=== PATIENT | male | born 1960 | race Caucasian/White ===

== ENCOUNTER 2019-03-03 17:35 | Emergency (ER) | payer OTHER ==
[~2019-03-03] VITALS: Ht 177.8 cm; Wt 149.7 kg
[~2019-03-03 17:35] MED LIST: MEDROLDOSEPACK PO; ROBAXIN 750 MG750 M1 PO; TRULICITY0.75 MG/0.
[2019-03-03 17:45] VITALS: BP 139/80
[2019-03-03] MEDS ORDERED: COLAZAL750 M1 PO (17:51)
[2019-03-03] MEDS ORDERED: LOSARTAN-HCTZ1 EAC2 PO (17:51)
[2019-03-03] MEDS ORDERED: SINGULAIR 10 MG10 M1 PO (17:51)
[2019-03-03] MEDS ORDERED: NORVASC5 MG PO (17:51)
== END 2019-03-03 18:09 | disposition home or self-care (01) ==
LOC: M.ERS 17:35
DX: L03.115 Cellulitis of right lower limb (principal); I10 Essential (primary) hypertension; E11.9 Type 2 diabetes mellitus without complications

== ENCOUNTER 2020-03-13 10:19 | Inpatient (IN) | payer OTHER ==
[~2020-03-13] VITALS: Ht 177.8 cm; Wt 118.4 kg
[~2020-03-13 10:19] MED LIST changes: +COLAZAL750 M1 PO; +LOSARTAN-HCTZ1 EAC2 PO; +NORVASC5 MG PO; +SINGULAIR 10 MG10 M1 PO
[2020-03-13 10:28] VITALS: BP 162/79
[2020-03-13] MEDS ORDERED: OMEPRAZOLE40 MG PO (10:44)
[2020-03-13 10:51] LABS: HEMATOCRIT 43.5 % (42.0-52.0); HEMOGLOBIN 15.1 gm/dL (14.0-18.0); MCHC 34.7 g/dL (28.0-37.0); MCV 83.6 fL (80.0-100.0); NUCLEATED RBCS 0 /100WBC; PLATELET COUNT* 167 thou/uL (150-400); RDW-CV 14.4 % (10.5-14.5); WBC 15.7 thou/uL (4.0-11.0)
[2020-03-13 11:04] LABS: INR 1.1
[2020-03-13 11:06] LABS: CALCIUM 8.5 mg/dL (8.5-10.1); CREATININE 1.1 mg/dL (0.6-1.3); POTASSIUM 3.8 mmol/L (3.5-5.1)
[2020-03-13 11:11] LABS: ALBUMIN 2.3 g/dL (3.4-5.0); TOTAL BILIRUBIN 0.9 mg/dL (<0.1-1.0); TOTAL PROTEIN 7.8 g/dL (6.4-8.2)
[2020-03-13 11:33] LABS: ABSOLUTE LYMPHOCYTES 1.7 thou/uL (0.8-5.3); ABSOLUTE MONOCYTES 1.1 thou/uL (0.0-1.2); ABSOLUTE NEUTROPHILS 12.9 thou/uL (1.6-8.1)
[2020-03-13 11:37] LABS: TOXIC GRANULATION Occasional
[2020-03-13 11:38] LABS: PLATELET ESTIMATE ADEQUATE
[2020-03-13 12:20] LABS: URINE BLOOD 2+ (Negative); URINE CLARITY CLEAR; URINE COLOR DARK YELLOW; URINE GLUCOSE-RANDOM NEGATIVE (Negative); URINE KETONES 1+ (Negative); URINE LEUKOCYTES-REFLEX NEGATIVE (Negative); URINE NITRITE-REFLEX NEGATIVE (Negative); URINE PROTEIN 3+ (Negative); URINE SPECIFIC GRAVITY 1.025 (1.005-1.030)
[2020-03-13 12:21] LABS: URINE BILIRUBIN 1+ (Negative)
[2020-03-13 12:22] LABS: ICTOTEST (BILI CONFIRMATORY) Negative (Negative)
[2020-03-13 12:25] LABS: SQUAMOUS 4-10 Moderate /LPF (0-3); URINE WBC-REFLEX 0-5 Rare /HPF (0-5)
[2020-03-13 12:26] LABS: BACTERIA-REFLEX >30 Many /HPF (None Seen); COARSE GRANULAR CASTS 0-3 Few /LPF (None Seen); FINE GRANULAR CASTS 0-3 Few /LPF (None Seen); HYALINE CASTS 4-10 Moderate /LPF (None Seen); MUCUS >6 Heavy strn/LPF (None Seen); URINE RBC 3-10 Few /HPF (0-2)
[2020-03-13 12:27] LABS: CRYSTALS None Seen /LPF (None Seen)
--- NOTE | 2020-03-13 12:30 | NUR ---
A SPECIAL PRECAUTIONS DIET TRAY WAS ORDERED FOR THE PATIENT AT THIS TIME.
--- NOTE | 2020-03-13 14:16 | NUR ---
PT GIVES HIS SPOUSE PERMISSION TO RECEIVE PATIENT INFORMATION AND PLAN OF CARE. PT'S SPOUSE REPORTS SHE IS BRINGING HIS PHONE SERVICE CORRESPONDENT TO HOSPITAL FOR HIM.
--- NOTE | 2020-03-13 16:39 | NUR ---
PT'S SPOUSE DROPPED OFF HIS CPAP MACHINE AND A BAG OF CLOTHES; ALL GIVEN TO THE PATIENT.
--- NOTE | 2020-03-13 17:11 | NUR ---
PT PROVIDED DINNER TRAY AND HELP UP TO USE BATHROOM R/T UNSTEADINESS IN AMBULATION
[2020-03-13 20:15] VITALS: BP 153/79
[2020-03-13 20:20] VITALS: BP 136/73
[2020-03-13 23:48] VITALS: BP 151/76
[2020-03-14 04:00] VITALS: BP 130/61
--- NOTE | 2020-03-14 04:40 | NUR ---
RECEIVED PT FROM ED AT APPROX 2020. PT IS AWAKE AND ORIENTED X4, FORGETFUL AT TIMES. ADMISSION ASSESSMENT DONE AND CHARTED. PT IS TRACING SR/ST ON THE VET ASSISTANT. Cezv=866.6, COOLING MEASURES DONE. NO DESATURATIONS NOTED ON 8LOF O2/HFC. PT IS SHORT OF AIR WITH ACTIVITY. ALEJO CATHETER IS DRAINING DARK YELLOW URINE. COVID TEST STILL PENDING. PT IS ORIENTED ON THE USE OF CALL LIGHT AND ON ROOM SET UP. CALL LIGHT WITHIN REACH, PT IS CLOSELY MONITORED. HIGH FALL PRECAUTIONS IN PLACE.
[2020-03-14 08:00] VITALS: BP 135/65
[2020-03-14 10:38] LABS: HEMATOCRIT 40.2 % (42.0-52.0); HEMOGLOBIN 13.6 gm/dL (14.0-18.0); MCH 28.9 pg (26.0-34.0); MCHC 33.9 g/dL (28.0-37.0); MPV 10.1 fl. (7.2-11.1); RBC 4.72 mil/uL (4.50-6.00); RDW-CV 14.6 % (10.5-14.5)
[2020-03-14 11:00] LABS: ALBUMIN 1.9 g/dL (3.4-5.0); CALCIUM 7.8 mg/dL (8.5-10.1); CREATININE 0.8 mg/dL (0.6-1.3); MAGNESIUM 2.2 mg/dL (1.8-2.4); POTASSIUM 3.5 mmol/L (3.5-5.1); TOTAL BILIRUBIN 0.6 mg/dL (<0.1-1.0); TOTAL PROTEIN 6.8 g/dL (6.4-8.2)
[2020-03-14 12:00] VITALS: BP 140/75
--- NOTE | 2020-03-14 13:26 | NUR ---
CM spoke with Pt via phone. Pt is A&O. Resides at home with his . Independent. Pt has a cpap. Pt had a covid test completed at urgent care, results have since come back negative, awaiting covid test while in the hospital. No hx of HH or SNF. Following.
--- NOTE | 2020-03-14 13:26 | NUR ---
ASSUMED PT CARE AT 0730, PT RESTING IN BED, A&OX4 AND HAS NO C/O PAIN OR SHORTNESS OF BREATH BUT STATES HE IS DIAPHORETIC R/T TAKING TYLENOL. PT HAS SLIGHTLY ELEVATED TEMPERATURE THIS MORNING WHICH RESOLVED BY LUNCH TIME. PT IS IN ISOLATION FOR PENDING COVID RESULTS. PT'S CALLED THIS MORNING AND STATES HE HAD ANOTHER COVID TEST DONE AT A [facility] RECENTLY AND IT CAME BACK TODAY NEGATIVE BUT WE ARE STILL AWAITING OUR TEST RESULTS AT THIS FACILITY. PT HAS ALEJO IN PLACE FOR I&O'S AND IS UP W/ 1. PT EDUCATED ON HOW TO USE INCENTIVE SPIROMETER THIS MORNING AND USED IT APPROPRIATELY WHILE I WAS IN THE ROOM W/ HIM. PT GOAL IS TO INCREASE FOOD AND FLUID INTAKE AND KEEP OXYGEN SATS OVER 92%. AM ASSESSMENT CHARTED, MEDS PER MAR, HOURLY ROUNDING OBSERVED, FALL PRECAUTIONS IN PLACE, CALL LIGHT W/IN REACH, WILL CONTINUE POC.
[2020-03-14 14:20] LABS: URINE BLOOD 3+ (Negative); URINE CLARITY CLEAR; URINE COLOR YELLOW; URINE GLUCOSE-RANDOM NEGATIVE (Negative); URINE KETONES NEGATIVE (Negative); URINE LEUKOCYTES-REFLEX NEGATIVE (Negative); URINE NITRITE-REFLEX NEGATIVE (Negative); URINE PROTEIN 2+ (Negative); URINE SPECIFIC GRAVITY >= 1.030 (1.005-1.030)
[2020-03-14] MEDS ORDERED: NORVASC 2.5 MG2.5 M1 PO (14:34)
[2020-03-14 14:39] LABS: ICTOTEST (BILI CONFIRMATORY) Negative (Negative); URINE BILIRUBIN 2+ (Negative)
[2020-03-14 14:40] LABS: COARSE GRANULAR CASTS 0-3 Few /LPF (None Seen); CRYSTALS None Seen /LPF (None Seen); SQUAMOUS 0-3 Few /LPF (0-3); URINE RBC 0-2 Rare /HPF (0-2); URINE WBC-REFLEX 0-5 Rare /HPF (0-5)
[2020-03-14 14:45] VITALS: BP 129/78
--- NOTE | 2020-03-14 15:37 | EKG ---
[place] [address] ELECTROCARDIOGRAM REPORT Name: SHIRA HOOKER Room: [address] IN [facility]#: [id number] Admission: 03/13/20 Attend Phys: Agusto Valdes Discharge: Date of : 56 Date of Service: 03/13/20 1137 Report #: [id number] THIS REPORT FOR: //name// [facility] ED Test Date: 2020-03-13 Test Time: 11:37:15 Pat Name: SHIRA HOOKER Department: Room: [facility] Gender: M Plastic Fabricator: : 1960 Requested By: Emery Deng Order Number: [id number] MD: Shira Thompson Measurements Intervals [place] Rate: 104 P: 22 DE: 129 QRS: -19 QRSD: 104 T: 26 QT: 336 QTc: 442 Interpretive Statements Sinus tachycardia Probable left atrial enlargement Borderline left axis deviation Baseline wander in lead(s) V3 No previous ECG available for comparison Electronically Signed On 03-14-2020 15:36:45 CDT by Shira Thompson [email or web address] <ELECTRONICALLY SIGNED> By: Shira Thompson MD, FACC 03/14/20 1536 1137 1137 Shira Thompson MD, [facility] /EPI
--- NOTE | 2020-03-14 17:14 | NUR ---
NO ACUTE CHANGES THROUGHOUT SHIFT, PT CONTINUES TO SAT ABOVE 92% ON 8L HIGH FLOW NC AND HAD NO C/O PAIN OR SHORTNESS OF BREATH THROUGHOUT SHIFT. MEDS PER NOV, HOURLY ROUNDING OBSERVED, FALL PRECAUTIONS IN PLACE, CALL LIGHT W/IN REACH, WILL CONTINUE POC.
[2020-03-14 20:00] VITALS: BP 142/79
[2020-03-15] VITALS: BP 133/54
[2020-03-15 04:00] VITALS: BP 134/84
--- NOTE | 2020-03-15 05:33 | NUR ---
ASSUMED PT CARE AT APPROX 1930. PT IS AWAKE AND ORIENTED X4. PT IS TRACING SR ON THE PSYCHOLOGICAL EXAMINER. PT DENIES PAIN/DISCOMFORT. PT HAS PERIODS OF DIAPHORESIS. AFEBRILE, BLOOD SUGAR IS 147. PT IS NOT IN DISTRESS. O2 SUPPORT DECREASED TO 6L/HFC-O2 SATURATION REMAINED IN THE LOW 90's. COVID TEST IS NEGATIVE, PT AND INFORMED. CALL LIGHT WITHIN REACH. HOURLY ROUNDING DONE FOR PT SAFETY. FALL PRECAUTIONS IN PLACE.
[2020-03-15 05:54] LABS: CALCIUM 8.5 mg/dL (8.5-10.1); CREATININE 0.8 mg/dL (0.6-1.3); MAGNESIUM 2.6 mg/dL (1.8-2.4); POTASSIUM 4.2 mmol/L (3.5-5.1); TOTAL BILIRUBIN 0.4 mg/dL (<0.1-1.0); TOTAL PROTEIN 7.5 g/dL (6.4-8.2)
[2020-03-15 08:00] VITALS: BP 127/78
--- NOTE | 2020-03-15 08:00 | NUR ---
ASSUMED CARE OF PATIENT THIS MORNING FROM NIGHT NURSE. PT IS DOING WELL WITH NO CO OF PAIN OR NAUSEA AT THIS TIME. H WAS EDUCATED ON FALL SAFETY AND USING THE CALL LIGHT FOR ASSISTANCE. BED IS IN THE LOWEST POSITION AND CALL LIGHT IS IN JON, WILL CONINTUR TO MONITOR.
[2020-03-15 12:02] VITALS: BP 138/83
--- NOTE | 2020-03-15 14:53 | NUR ---
Per Caesar Yañezid negative. Wean o2, Pt on 6L. Pt may need home o2 at dc, ex ox to be completed closer to dc.
--- NOTE | 2020-03-15 15:40 | 2DMMODE ---
[place] [address] 2 D/M-MODE ECHOCARDIOGRAM Name: SHIRA HOOKER Room: [address] IN .R.#: [id number] Admission: 03/13/20 Attend Phys: Agusto Valdes Discharge: Date of : 56 Date of Service: 03/15/20 1539 Report #: [id number] THIS REPORT FOR: cc: Saeid Rodriguez MD, Anthony MD Holkins, John M. MD [facility] ~ APPROVED REPORT Study performed: 03/15/2020 10:11:43 EXAM: Comprehensive 2D, Doppler, and color-flow Echocardiogram Patient Location: In-Patient BSA: 2.34 HR: 80 bpm BP: 134/84 mmHg Other Information Study Quality: Fair Indications Syncope 2D Dimensions IVSd: 17.38 (7-11mm) LVOT Diam: 21.00 (18-24mm) LVDd: 47.13 mm PWd: 12.81 (7-11mm) Ascending Ao: 31.68 (22-36mm) LVDs: 34.85 (25-40mm) Aortic Root: 32.00 mm Volumes Left Atrial Volume (Systole) LA ESV Index: 17.50 mL/m2 Aortic Valve AoV Peak Willie.: 1.03 m/s AO Peak Gr.: 4.28 mmHg LVOT Max P.69 mmHg AO Mean Gr.: 2.54 mmHg LVOT Mean P.99 mmHg LVOT Max V: 0.96 m/s AO V2 VTI: 20.99 cm LVOT Mean V: 0.66 m/s JENNIFER (VTI): 3.52 cm2 LVOT V1 VTI: 21.30 cm Mitral Valve E/A Ratio: 1.17 [place] [address] 2 D/M-MODE ECHOCARDIOGRAM Name: SHIRA HOOKER Room: [address] IN ..#: [id number] Admission: 03/13/20 Attend Phys: Agusto Valdes Discharge: Date of : 56 Date of Service: 03/15/20 1539 Report #: [id number] MV Decel. Time: 194.76 ms MV E Max Willie.: 0.81 m/s MV PHT: 56.48 ms MVA (PHT): 3.90 cm2 TDI E/Lateral E': 6.23 E/Medial E': 6.75 Medial E' Willie.: 0.12 m/s Lateral E' Willie.: 0.13 m/s Pulmonary Valve PV Peak Willie.: 0.94 m/s PV Peak Gr.: 3.56 mmHg Left Ventricle The left ventricle is normal size. There is normal LV segmental wall motion. Mild concentric left ventricular hypertrophy. Left ventricular systolic function is normal. The left ventricular ejection fraction is within the normal range. LVEF is 55-60%. Right Ventricle The right ventricle is normal size. The right ventricular systolic function is normal. Atria The left atrium size is normal. The right atrium size is normal. Aortic Valve Mild aortic valve sclerosis. No aortic regurgitation is present. There is no aortic valvular stenosis. Mitral Valve The mitral valve is normal in structure. Trace mitral regurgitation. No evidence of mitral valve stenosis. Tricuspid Valve The tricuspid valve is normal in structure. There is no tricuspid valve regurgitation noted. Pulmonic Valve The pulmonary valve is normal in structure. There is no pulmonic valvular regurgitation. Great Vessels The aortic root is normal in size. IVC is normal in size and collapses >50% [place] [address] 2 D/M-MODE ECHOCARDIOGRAM Name: HOOKERSHIRA Room: [address]#: [id number] Admission: 03/13/20 Attend Phys: Agusto Valdes Discharge: Date of : 56 Date of Service: 03/15/20 1539 Report #: [id number] Pericardium There is no pericardial effusion. <Conclusion> Mild concentric left ventricular hypertrophy. Left ventricular systolic function is normal. The left ventricular ejection fraction is within the normal range. LVEF is 55-60%. The right ventricle is normal size. The left atrium size is normal. Mild aortic valve sclerosis. No aortic regurgitation is present. There is no aortic valvular stenosis. The mitral valve is normal in structure. Trace mitral regurgitation. The tricuspid valve is normal in structure. IVC is normal in size and collapses >50% with inspiration. There is no pericardial effusion. There is normal LV segmental wall motion. The left ventricle is normal size. <ELECTRONICALLY SIGNED> By: Shira Thompson MD, [facility] 03/15/20 1539 1539 1539 Shira Thompson MD, FACC /INF
[2020-03-15 16:09] VITALS: BP 140/83
[2020-03-15 19:30] VITALS: BP 140/81
[2020-03-16] VITALS: BP 132/74
[2020-03-16 04:00] VITALS: BP 136/77
[2020-03-16 04:44] LABS: ABSOLUTE LYMPHOCYTES 1.1 thou/uL (0.8-5.3); ABSOLUTE MONOCYTES 0.4 thou/uL (0.0-1.2); ABSOLUTE NEUTROPHILS 6.5 thou/uL (1.6-8.1); BASOPHILS 0.2 %; EOSINOPHILS 0.1 %; HEMATOCRIT 45.1 % (42.0-52.0); HEMOGLOBIN 15.2 gm/dL (14.0-18.0); LYMPHOCYTES 13.5 %; MCH 28.7 pg (26.0-34.0); MCHC 33.6 g/dL (28.0-37.0); MCV 85.5 fL (80.0-100.0); MONOCYTES 4.9 %; MPV 9.9 fl. (7.2-11.1); NUCLEATED RBCS 0 /100WBC; PLATELET COUNT* 197 thou/uL (150-400); POLYS 81.3 %; RBC 5.28 mil/uL (4.50-6.00); RDW-CV 14.9 % (10.5-14.5); WBC 7.9 thou/uL (4.0-11.0)
[2020-03-16 04:54] LABS: ALBUMIN 2.3 g/dL (3.4-5.0); CALCIUM 8.6 mg/dL (8.5-10.1); CREATININE 0.8 mg/dL (0.6-1.3); MAGNESIUM 2.5 mg/dL (1.8-2.4); POTASSIUM 3.7 mmol/L (3.5-5.1); TOTAL BILIRUBIN 0.3 mg/dL (<0.1-1.0); TOTAL PROTEIN 7.2 g/dL (6.4-8.2)
--- NOTE | 2020-03-16 07:15 | NUR ---
CHANGE OF SHIFT, BEDSIDE REPORT GIVEN PATIENT SEEN AT BEDSIDE, IN BED RESTING ASSUMED PATIENT CARE
[2020-03-16 08:00] VITALS: BP 142/97
[2020-03-16] MEDS ORDERED: CEFUROXIME500 MG PO (09:38)
[2020-03-16] MEDS ORDERED: AZITHROMYCIN500 MG PO (09:38)
[2020-03-16] MEDS ORDERED: PREDNISONE 10 M10 MG PO (09:38)
--- NOTE | 2020-03-16 11:21 | NUR ---
Pt discharging to home today, Pt does not need home o2.
[2020-03-16 12:09] VITALS: BP 142/97
--- NOTE | 2020-03-16 12:30 | NUR ---
DISCHARGE TO HOME DISCHARGE INSTRUCTIONS GIVEN, ACKNOWLEDGED, SIGNED COPIES GIVEN IV AND HEART MONITOR REMOVED PERSONAL BELONGINGS RETURNED PATIENT ASSISTED OUT TO WAITING CAR VIA GOOD CONDITION
[2020-03-16] MEDS ORDERED: FLORANEX TABLE1 EACH PO (12:59)
--- NOTE | 2020-03-16 15:54 | CON ---
[address] [address] CONSULTATION Name: SHIRA HOOKER Room: [address] IN .R.#: [id number] Admission: 03/13/20 Attend Phys: Mildred Vasquez Discharge: Date of : 56 Report #: [id number] THIS REPORT FOR: //name// cc: Saeid Rodriguez MD, Anthony MD ~ THIS REPORT FOR: //name// CC: Saeid Valdes DATE OF SERVICE: 03/14/2020 REQUESTING PHYSICIAN: Agusto Valdes DO INDICATION FOR CONSULTATION: Pulmonary infiltrates/acute hypoxemic respiratory failure. HISTORY OF PRESENT ILLNESS: This is a 59-year-old gentleman. The patient is reported to be a lifetime nonsmoker. He also does not have any history of cardiac or respiratory disease longstanding in the past. The patient's body mass index is elevated to around 38. The patient is now admitted with an acute respiratory illness. For the last several days, he has had increase in shortness of breath. He has also been coughing and bringing up sputum. He does not know the color of his sputum. He has had a high-grade fever with chills. In addition, he has also had nausea, vomiting, and diarrhea. The patient was evaluated in urgent care and is reported to have had a COVID-19 test which was negative. He has had dark urine as well. The patient is hypoxemic. He is requiring 8 liters of oxygen to maintain O2 saturation in the low 90s. Note that the patient previously has not had a cardiac or respiratory disease [facility]. The patient did have a high-grade fever recorded up to 38.7 degrees Celsius yesterday. He, however, says that he is feeling better now. His temperature is down to 36.4 around noontime today. REVIEW OF SYSTEMS: For 10 points is negative except as mentioned above. PAST MEDICAL HISTORY: Hypertension, ulcerative colitis, gastric sleeve, possible history of rheumatic fever in high school. Despite the fact that the patient is not reported to have a history of cardiac or respiratory disease [facility], note that there is mention of him using Singulair at home. Has a possible history of diabetes; however, his blood glucoses are in the low 100s and he is not on any medications for diabetes. I do not have any measure of his left ventricular ejection fraction available. SOCIAL HISTORY: No known history of smoking, ethanol abuse or drug abuse. CURRENT MEDICATIONS: List in [employer] [address] CONSULTATION Name: SHIRA HOOKER Room: [address]#: [id number] Admission: 03/13/20 Attend Phys: Mildred Vasquez Discharge: Date of : 56 Report #: [id number] HOME MEDICATIONS: List in [employer] reviewed. ALLERGIES: No known drug allergies. FAMILY HISTORY: There is no pertinent family history. PHYSICAL EXAMINATION: GENERAL: He is alert, awake, and oriented. He is sitting comfortably in a chair. He does not appear to be in any distress. VITAL SIGNS: Pulse of 84 and a blood pressure of 140/75. He is afebrile now with a temperature of 36.4. He had a high-grade fever of 37.9 degrees Celsius overnight, lasting until 8 o'clock this morning. He is breathing at a rate of around 20, which is mildly elevated. Body mass index is elevated to 38. HEENT: Head is normocephalic and atraumatic. NECK: Does not show raised JVP, asymmetry, mass, or lymph nodes. CHEST: Symmetrical expansion on inspection and palpation. On auscultation, breath sounds are bilaterally equal, decreased. No added sounds. HEART: Regular. There is no murmur. ABDOMEN: Soft and nontender. EXTREMITIES: Lower extremities show no edema, no calf tenderness. SKIN: Dry and intact. NEUROLOGICAL: Moves all extremities bilaterally equally and spontaneously with no focal deficit identified. LABORATORY DATA: The patient's CT chest films as well as report are reviewed. There are extensive bilateral infiltrates noted. A component of pulmonary vascular congestion is not completely ruled out. The patient's CT abdomen and pelvis report is in [employer] and I did review the report. The patient's CT head report is in [employer] also and is reviewed. The patient's COVID-19 repeat test is pending. MRSA test is pending. CBC as well as chemistries in [facility] reviewed. Coagulation studies in [facility] reviewed. Urinalysis in [facility] reviewed. ASSESSMENT/PLAN: 1. Acute hypoxemic respiratory failure. The patient does have pneumonia. His COVID-19 test in the urgent care was negative; however, this is still not ruled out and is being evaluated. Bacterial infections can also lead to this picture. 2. Extensive bilateral pulmonary infiltrates/pneumonia. There are fairly impressive bilateral extensive infiltrates. As above, COVID-19 repeat testing is pending. Meanwhile, I do agree with treating him with broad-spectrum antibiotics. At this time, I favor continuing with both Zithromax as well as ceftriaxone. In fact, I went ahead and ordered an additional dose of ceftriaxone. I initially considered broadening his antibiotic coverage including adding MRSA coverage; however, considering the patient reports that he is feeling significantly better than when he was admitted, I decided to hold off [facility] [address] [place] [address] CONSULTATION Name: MORROSHIRA Karen Room: [address] IN [facility]#: [id number] Admission: 03/13/20 Attend Phys: Mildred Vasquez Discharge: Date of : 56 Report #: [id number] on this; however, I will have a very low threshold of broadening antibiotics should his condition deteriorates. I have ordered more serologies as well. I also fully agree with treating him with corticosteroids. We will go ahead and add bronchodilators as well. 3. Fluid and electrolytes. At this time, the patient appears to be well hydrated. Therefore, considering his high FiO2 needs, I decided to discontinue his IV fluids, will watch this closely. We will replace potassium. Would obtain an echocardiogram as well. 4. Obesity/suspected obstructive sleep apnea. Evaluation is deferred at this time. In case the patient's condition worsens, will have a low threshold of placing him on a BiPAP. Thanks for this consultation. <ELECTRONICALLY SIGNED> By: Esteban Trent MD 03/16/20 1554 1538 [id number] Trent MD /nt
== END 2020-03-16 12:30 | disposition home or self-care (01) | DRG 871 ==
LOC: M.ERS 10:19 → M.2W 13:02 → M.TBA-ER 13:02 → M.2W 20:20
PROVIDERS: Family Medicine; Internal Medicine; Internal Medicine Critical Care Medicine; ADMIT Internal Medicine; ATTEND Internal Medicine
DX: A41.9 Sepsis, unspecified organism (principal); J18.9 Pneumonia, unspecified organism; J96.21 Acute and chronic respiratory failure with hypoxia; K51.90 Ulcerative colitis, unspecified, without complications; E87.1 Hypo-osmolality and hyponatremia; I10 Essential (primary) hypertension; E11.9 Type 2 diabetes mellitus without complications; G47.33 Obstructive sleep apnea (adult) (pediatric); E66.9 Obesity, unspecified; K52.9 Noninfective gastroenteritis and colitis, unspecified; Z20.828 Contact with and (suspected) exposure to other viral communicable diseases; Z68.37 Body mass index [BMI] 37.0-37.9, adult; Z79.899 Other long term (current) drug therapy

== ENCOUNTER → 2020-04-05 | Outpatient (CLI) | payer OTHER ==
[~2020-04-05] MED LIST changes: +AZITHROMYCIN500 MG PO; +CEFUROXIME500 MG PO; +FLORANEX TABLE1 EACH PO; +NORVASC 2.5 MG2.5 M1 PO; +OMEPRAZOLE40 MG PO; +PREDNISONE 10 M10 MG PO
== END ==
LOC: M.RAD 10:39
PROVIDERS: ATTEND Internal Medicine Critical Care Medicine
DX: R91.8 Other nonspecific abnormal finding of lung field (principal); J18.9 Pneumonia, unspecified organism; J96.01 Acute respiratory failure with hypoxia

== ENCOUNTER → 2020-04-08 | Outpatient (CLI) | payer OTHER | LOC: M.ULTRA 10:11 | PROVIDERS: ATTEND Internal Medicine Critical Care Medicine | DX: I83.893 Varicose veins of bilateral lower extremities with other complications (principal) ==

== ENCOUNTER 2021-10-02 18:07 | Inpatient (IN) | payer OTHER ==
[~2021-10-02] VITALS: Ht 175.3 cm; Wt 124.7 kg
[2021-10-02 18:11] VITALS: BP 157/91
[2021-10-02 18:57] LABS: ABSOLUTE LYMPHOCYTES 0.6 thou/uL (0.8-5.3); ABSOLUTE MONOCYTES 0.2 thou/uL (0.0-1.2); BASOPHILS 0.2 %; HEMATOCRIT 42.2 % (42.0-52.0); HEMOGLOBIN 14.2 gm/dL (14.0-18.0); LYMPHOCYTES 13.2 %; MCH 27.2 pg (26.0-34.0); MCHC 33.6 g/dL (28.0-37.0); MCV 80.8 fL (80.0-100.0); MONOCYTES 4.7 %; MPV 7.9 fl. (7.2-11.1); NUCLEATED RBCS 0 /100WBC; PLATELET COUNT* 134 thou/uL (150-400); POLYS 81.9 %; RBC 5.23 mil/uL (4.50-6.00); RDW-CV 14.7 % (10.5-14.5); WBC 4.9 thou/uL (4.0-11.0)
[2021-10-02 19:04] LABS: CALCIUM 8.1 mg/dL (8.5-10.1); CREATININE 0.9 mg/dL (0.6-1.3); POTASSIUM 3.4 mmol/L (3.5-5.1)
[2021-10-02 19:16] LABS: INFLUENZA A ANTIGEN Negative (Negative); INFLUENZA B ANTIGEN Negative (Negative); TOTAL BILIRUBIN 0.7 mg/dL (<0.1-1.0); TOTAL PROTEIN 7.5 g/dL (6.4-8.2)
[2021-10-03 02:30] VITALS: BP 141/72
[2021-10-03 10:00] VITALS: BP 142/72
--- NOTE | 2021-10-03 10:01 | EKG ---
[place] [address] ELECTROCARDIOGRAM REPORT Name: SHIRA HOOKER Room: [place] [address] ADM IN [facility]#: [id number] Admission: 10/02/21 Attend Phys: Agusto Valdes Discharge: Date of : 56 Date of Service: 10/02/211818 Report #: [id number] THIS REPORT FOR: //name// [facility] ED Test Date: 2021-10-02 Test Time: 18:19:46 Pat Name: SHIRA HOOKER Department: Room: [facility] Gender: M Service Parts Coordinator: : 1960 Requested By: Emery Deng Order Number: [id number] MD: Shira Thompson Measurements Intervals [place] Rate: 103 P: 55 WV: 132 QRS: 69 QRSD: 98 T: -38 QT: 330 QTc: 432 Interpretive Statements Sinus tachycardia Inferior infarct, age indeterminate Baseline wander in lead(s) II,III,aVR,aVF,V3,V6 Compared to ECG 03/13/2020 11:37:15 Baseline wander is noted Electronically Signed On 10-03-2021 10:01:42 [employer]ESSPO[employer] CLEANER by Shira Thompson [email or web address] <ELECTRONICALLY SIGNED> By: Shira Thompson MD, FAC 10/03/21 1001 18 181 Shira Thompson MD, FACC /EPI
[2021-10-03 12:00] VITALS: BP 137/68
[2021-10-03] MEDS ORDERED: PROAIR HFA8.5 GM INH (15:04)
[2021-10-03] MEDS ORDERED: PREDNISONE 10 M10 MG PO (15:04)
[2021-10-03] MEDS ORDERED: LEVOFLOXACIN500 MG PO (15:04)
[2021-10-03] MEDS ORDERED: TESSALON PERLE100 MG PO (15:05)
[2021-10-03 16:12] VITALS: BP 137/68
[2021-10-03 16:57] VITALS: BP 137/68
[2021-10-03 17:36] VITALS: BP 141/70
== END 2021-10-03 18:15 | disposition home or self-care (01) | DRG 177 ==
LOC: M.ERS 18:07 → M.TBA-ER 19:25
PROVIDERS: Physician Assistant; ADMIT Internal Medicine; ATTEND Internal Medicine
DX: U07.1 COVID-19 (principal); J96.01 Acute respiratory failure with hypoxia; I10 Essential (primary) hypertension; E11.9 Type 2 diabetes mellitus without complications; Z88.8 Allergy status to other drugs, medicaments and biological substances; E87.6 Hypokalemia

== ENCOUNTER 2021-10-06 12:34 | Inpatient (IN) | payer OTHER ==
[~2021-10-06] VITALS: Ht 177.8 cm; Wt 124.7 kg
[~2021-10-06 12:34] MED LIST changes: +LEVOFLOXACIN500 MG PO; +PROAIR HFA8.5 GM INH; +TESSALON PERLE100 MG PO
[2021-10-06 12:41] VITALS: BP 142/64
[2021-10-06 12:57] LABS: HEMATOCRIT 41.1 % (42.0-52.0); HEMOGLOBIN 13.6 gm/dL (14.0-18.0); MCH 27.1 pg (26.0-34.0); MCHC 33.1 g/dL (28.0-37.0); MCV 81.8 fL (80.0-100.0); MPV 8.5 fl. (7.2-11.1); NUCLEATED RBCS 0 /100WBC; PLATELET COUNT* 210 thou/uL (150-400); RBC 5.02 mil/uL (4.50-6.00); RDW-CV 14.6 % (10.5-14.5); WBC 10.7 thou/uL (4.0-11.0)
[2021-10-06 13:07] LABS: CREATININE 0.8 mg/dL (0.6-1.3); POTASSIUM 4.1 mmol/L (3.5-5.1)
--- NOTE | 2021-10-06 13:12 | EKG ---
[place] [address] ELECTROCARDIOGRAM REPORT Name: SHIRA HOOKER Room: [facility].#: [id number] Admission: Attend Phys: Discharge: Date of : 56 Date of Service: 10/06/21 1237 Report #: [id number] THIS REPORT FOR: //name// [facility] ED Test Date: 2021-10-06 Test Time: 12:37:52 Pat Name: SHIRA HOOKER Department: Room: Gender: M Marketing Analyst: : 1960 Requested By: Kalin Garsia Order Number: [id number] MD: Shira Thompson Measurements Intervals [place] Rate: 97 P: 41 HI: 136 QRS: -21 QRSD: 98 T: 25 QT: 349 QTc: 444 Interpretive Statements Sinus rhythm Probable left atrial enlargement Abnormal R-wave progression, late transition Left ventricular hypertrophy Baseline wander in lead(s) III Compared to ECG 10/02/2021 18:19:46 Left ventricular hypertrophy now present Sinus tachycardia no longer present Myocardial infarct finding no longer present Electronically Signed On 10-06-2021 13:12:46 PARTS SALESPERSON by Shira Thompson [email or web address] <ELECTRONICALLY SIGNED> By: Shira Thompson MD, [facility] 10/06/21 1312 1237 1237 Shira Thompson MD, [facility] /EPI
[2021-10-06 13:18] LABS: ALBUMIN 2.4 g/dL (3.4-5.0); TOTAL BILIRUBIN 0.6 mg/dL (<0.1-1.0)
[2021-10-06 13:25] LABS: ABSOLUTE LYMPHOCYTES 0.2 thou/uL (0.8-5.3); ABSOLUTE MONOCYTES 0.1 thou/uL (0.0-1.2); ABSOLUTE NEUTROPHILS 10.4 thou/uL (1.6-8.1); PLATELET ESTIMATE ADEQUATE
[2021-10-06 15:30] VITALS: BP 129/85
[2021-10-06 19:30] VITALS: BP 132/77
[2021-10-06 23:30] VITALS: BP 133/72
[2021-10-07 03:30] VITALS: BP 125/66
[2021-10-07 08:00] VITALS: BP 149/84
[2021-10-07 12:46] LABS: APTT 23.5 Seconds (25.0-31.3); INR 1.1; PROTIME 11.1 Seconds (9.20-11.50)
[2021-10-07 13:45] VITALS: BP 136/81
[2021-10-07 14:45] LABS: ABSOLUTE LYMPHOCYTES 0.5 thou/uL (0.8-5.3); ABSOLUTE MONOCYTES 0.4 thou/uL (0.0-1.2); ABSOLUTE NEUTROPHILS 10.6 thou/uL (1.6-8.1); BASOPHILS 0.1 %; HEMATOCRIT 41.8 % (42.0-52.0); HEMOGLOBIN 13.9 gm/dL (14.0-18.0); MCH 27.1 pg (26.0-34.0); MCHC 33.2 g/dL (28.0-37.0); MCV 81.7 fL (80.0-100.0); MONOCYTES 3.2 %; MPV 8.7 fl. (7.2-11.1); NUCLEATED RBCS 0 /100WBC; PLATELET COUNT* 248 thou/uL (150-400); POLYS 92.7 %; RBC 5.12 mil/uL (4.50-6.00); RDW-CV 14.6 % (10.5-14.5); WBC 11.5 thou/uL (4.0-11.0)
[2021-10-07 14:54] LABS: ALBUMIN 2.6 g/dL (3.4-5.0); CALCIUM 8.2 mg/dL (8.5-10.1); CREATININE 0.7 mg/dL (0.6-1.3); MAGNESIUM 2.4 mg/dL (1.8-2.4); TOTAL BILIRUBIN 0.5 mg/dL (<0.1-1.0); TOTAL PROTEIN 7.3 g/dL (6.4-8.2)
[2021-10-07 18:28] VITALS: BP 149/74
[2021-10-07 20:29] LABS: BE 5.6 mmol/L (-2 to +3); PCO2 40.5 mmHg (35.0-45.0); PO2 84.3 mmHg (75.0-100.0); pH 7.481 (7.340-7.450)
[2021-10-07 21:29] VITALS: BP 147/73
[2021-10-07 22:30] VITALS: BP 152/77
[2021-10-08 01:06] VITALS: BP 142/75
[2021-10-08 04:21] VITALS: BP 140/73
[2021-10-08 04:39] LABS: ABSOLUTE LYMPHOCYTES 0.2 thou/uL (0.8-5.3); ABSOLUTE MONOCYTES 0.1 thou/uL (0.0-1.2); ABSOLUTE NEUTROPHILS 6.1 thou/uL (1.6-8.1); BASOPHILS 0.1 %; HEMATOCRIT 38.9 % (42.0-52.0); HEMOGLOBIN 12.9 gm/dL (14.0-18.0); LYMPHOCYTES 3.6 %; MCHC 33.2 g/dL (28.0-37.0); MCV 81.3 fL (80.0-100.0); MONOCYTES 1.8 %; MPV 8.3 fl. (7.2-11.1); NUCLEATED RBCS 0 /100WBC; PLATELET COUNT* 239 thou/uL (150-400); POLYS 94.5 %; RBC 4.78 mil/uL (4.50-6.00); RDW-CV 14.5 % (10.5-14.5); WBC 6.4 thou/uL (4.0-11.0)
[2021-10-08 05:49] LABS: ALBUMIN 2.4 g/dL (3.4-5.0); CALCIUM 8.2 mg/dL (8.5-10.1); CREATININE 0.8 mg/dL (0.6-1.3); MAGNESIUM 2.4 mg/dL (1.8-2.4); POTASSIUM 4.3 mmol/L (3.5-5.1); TOTAL BILIRUBIN 0.6 mg/dL (<0.1-1.0)
[2021-10-08 09:00] VITALS: BP 133/65
[2021-10-08 12:00] VITALS: BP 98/43
[2021-10-08 16:00] VITALS: BP 104/57
[2021-10-08 22:00] VITALS: BP 102/45
[2021-10-09] VITALS: BP 136/77
[2021-10-09 04:26] LABS: HEMATOCRIT 38.7 % (42.0-52.0); HEMOGLOBIN 12.6 gm/dL (14.0-18.0); MCH 26.8 pg (26.0-34.0); MCHC 32.6 g/dL (28.0-37.0); MCV 82.1 fL (80.0-100.0); MPV 8.6 fl. (7.2-11.1); NUCLEATED RBCS 0 /100WBC; PLATELET COUNT* 264 thou/uL (150-400); RBC 4.71 mil/uL (4.50-6.00); RDW-CV 14.4 % (10.5-14.5); WBC 7.2 thou/uL (4.0-11.0)
[2021-10-09 04:52] LABS: ALBUMIN 2.5 g/dL (3.4-5.0); CALCIUM 8.4 mg/dL (8.5-10.1); CREATININE 0.9 mg/dL (0.6-1.3); MAGNESIUM 2.7 mg/dL (1.8-2.4); TOTAL BILIRUBIN 0.4 mg/dL (<0.1-1.0); TOTAL PROTEIN 6.7 g/dL (6.4-8.2)
[2021-10-09 06:50] LABS: ABSOLUTE LYMPHOCYTES 0.1 thou/uL (0.8-5.3); ABSOLUTE MONOCYTES 0.1 thou/uL (0.0-1.2)
[2021-10-09 06:51] LABS: PLATELET ESTIMATE ADEQUATE
[2021-10-09 08:00] VITALS: BP 134/78
[2021-10-09 12:00] VITALS: BP 111/64
[2021-10-09 12:44] LABS: BE 3.4 mmol/L (-2 to +3); PCO2 35.1 mmHg (35.0-45.0); PO2 61.5 mmHg (75.0-100.0); pH 7.491 (7.340-7.450)
--- NOTE | 2021-10-09 13:16 | 2DMMODE ---
[place] [address] 2 D/M-MODE ECHOCARDIOGRAM Name: SHIRA HOOKER Room: [address] IN [facility]#: [id number] Admission: 10/06/21 Attend Phys: Agusto Valdes Discharge: Date of : 56 Date of Service: 10/09/21 1316 Report #: [id number] THIS REPORT FOR: cc: Saeid Rodriguez MD, Anthony MD Blick,Lukas Barrios MD [facility] ~ APPROVED REPORT Study performed: 10/09/2021 10:40:33 EXAM: Comprehensive 2D, Doppler, and color-flow Echocardiogram Patient Location: In-Patient Room #: [facility] Status: routine BSA: 2.37 HR: 88 bpm BP: 134/78 mmHg Rhythm: NSR Other Information Study Quality: Fair Indications Dyspnea 2D Dimensions IVSd: 14.32 (7-11mm) LVOT Diam: 20.53 (18-24mm) LVDd: 50.29 mm PWd: 13.00 (7-11mm) Ascending Ao: 33.31 (22-36mm) LVDs: 30.30 (25-40mm) Volumes Left Atrial Volume (Systole) LA ESV Index: 25.60 mL/m2 Aortic Valve AoV Peak Willie.: 1.91 m/s AO Peak Gr.: 14.59 mmHg LVOT Max P.66 mmHg AO Mean Gr.: 8.67 mmHg LVOT Mean P.45 mmHg LVOT Max V: 1.29 m/s AO V2 VTI: 36.47 cm LVOT Mean V: 0.86 m/s JENNIFER (VTI): 2.43 cm2 LVOT V1 VTI: 26.73 [place] [address] 2 D/M-MODE ECHOCARDIOGRAM Name: SHIRA HOOKER Room: [address] IN .R.#: [id number] Admission: 10/06/21 Attend Phys: Agusto Valdes Discharge: Date of : 56 Date of Service: 10/09/21 1316 Report #: [id number] E/A Ratio: 1.22 MV Decel. Time: 182.33 ms MV E Max Willie.: 0.98 m/s MV PHT: 52.88 ms MVA (PHT): 4.16 cm2 TDI E/Lateral E': 8.17 E/Medial E': 10.89 Medial E' Willie.: 0.09 m/s Lateral E' Willie.: 0.12 m/s Pulmonary Valve PV Peak Willie.: 1.28 m/s PV Peak Gr.: 6.59 mmHg Left Ventricle The left ventricle is normal size. There is normal LV segmental wall motion. Mild concentric left ventricular hypertrophy. Left ventricular systolic function is normal. The left ventricular ejection fraction is within the normal range. LVEF is 55-60%. The left ventricular diastolic function is normal. Right Ventricle The right ventricle is normal size. The right ventricular systolic function is normal. Atria The left atrium size is normal. The right atrium size is normal. Aortic Valve Aortic valve is calcified. Trace aortic regurgitation. There is mild aortic valvular stenosis. Mitral Valve There is mitral annular calcification. The mitral valve is normal in structure. Trace mitral regurgitation. No evidence of mitral valve stenosis. Tricuspid Valve The tricuspid valve is normal in structure. There is trace tricuspid valve regurgitation noted. Pulmonic Valve Pulmonic valve is not well visualized. There is no pulmonic [place] [address] 2 D/M-MODE ECHOCARDIOGRAM Name: SHIRA HOOKER Room: [address]#: [id number] Admission: 10/06/21 Attend Phys: Agusto Valdes Discharge: Date of : 56 Date of Service: 10/09/21 1316 Report #: [id number] Great Vessels The aortic root is normal in size. IVC is normal in size and collapses >50% with inspiration. Pericardium There is no pericardial effusion. <Conclusion> Mild concentric left ventricular hypertrophy. LVEF is 55-60%. There is mild aortic valvular stenosis. Trace aortic regurgitation. <ELECTRONICALLY SIGNED> By: Lukas Martinez MD, FACC 10/09/21 1316 15 15 Lukas Martinez MD, FACC /INF
[2021-10-09 16:00] VITALS: BP 122/51
--- NOTE | 2021-10-09 18:57 | CON ---
[address] [address] CONSULTATION Name: SHIRA HOOKER Room: [address] [place] .R.#: [id number] Admission: 10/06/21 Attend Phys: Mildred Vasquez Discharge: Date of : 56 Report #: [id number] THIS REPORT FOR: cc: Saeid Rodriguez MD, Anthony MD Pervez, Adeel MD ~ DATE OF CONSULTATION: 10/07/2021 REQUESTING PHYSICIAN: Agusto Valdes DO. INDICATION FOR CONSULTATION: Acute hypoxemic respiratory failure secondary to COVID-19. HISTORY OF PRESENT ILLNESS: A 61-year-old gentleman, past medical history is as mentioned below. He was recently here just 5 days ago with COVID-19 overnight, went home on a steroid and Levaquin, came back now with worsening respiratory failure. Currently, he is having increasing shortness of breath. He is coughing. He does have a sputum in a cup beside his bed, which is hemorrhagic and there is also yellow sputum. He is on a nonrebreather mask. He is saturating 84%. He does have swelling of lower extremities. REVIEW OF SYSTEMS: For 12 points is negative except as mentioned above. PAST MEDICAL HISTORY: Hypertension, ulcerative colitis. There is mention of diabetes on the record; however, the patient clearly states that he does not have diabetes. Rheumatic fever in high school, umbilical hernia repair, tonsil surgery, gastric sleeve in 2019. SOCIAL HISTORY: Lifetime nonsmoker. No known history of heavy alcohol use or illegal drug use. CURRENT MEDICATIONS: List in [facility] reviewed. HOME MEDICATIONS: List in [facility] reviewed. ALLERGIES: HE SAYS HE HAD A RASH WITH DOXYCYCLINE. FAMILY HISTORY: No pertinent family history. VACCINATION HISTORY: Not vaccinated for COVID-19. PHYSICAL EXAMINATION: GENERAL: He is alert, awake and oriented. VITAL SIGNS: O2 saturation is 84% on a nonrebreather mask. Rest of the vitals in [facility] [place] [address] CONSULTATION Name: SHIRA HOOKER Room: [address]#: [id number] Admission: 10/06/21 Attend Phys: Mildred Vasquez Discharge: Date of : 56 Report #: [id number] NECK: Does not show raised JVP. CHEST: Breath sounds bilaterally equal. No added sounds. HEART: Regular. No murmur. ABDOMEN: Soft and nontender. EXTREMITIES: Lower extremities, 1+ edema, no calf tenderness. LABORATORY DATA: Chest x-rays and labwork in [facility] reviewed. ASSESSMENT AND PLAN: 1. Acute hypoxemic respiratory failure secondary to COVID-19. Keep on BiPAP while asleep and p.r.n. Recommend heated high-flow nasal cannula while awake. 2. COVID-19. We will give him dexamethasone 10 mg now. He is subsequently being started on dexamethasone 10 mg daily. We will follow and see if he needs an additional dose. Agree with remdesivir, continue. May benefit from Actemra. Unfortunately, Actemra is in short supply. 3. Pulmonary infiltrates. He does have some hemoptysis. Also, he has received a few doses of Levaquin, although not a complete course before getting admitted here; therefore, I would like to cover him fairly broadly. We will start with cefepime and linezolid. He is also on azithromycin. I ordered a sputum culture as well as a nasal swab for MRSA. If these are obtained then I feel this will be of benefit and will help us target antibiotic therapy later. 4. Fluid overload. We will give him Lasix now as well as in the morning. 5. Evaluation for thromboembolic phenomena. Recent CTA chest is negative. We will do venous Dopplers. I also ordered an echo. Intermediate dose Lovenox ordered. 6. Hyperglycemia. He says he does not have diabetes. Regardless because of hyperglycemia, we put him on an insulin sliding scale. 7. Gastrointestinal prophylaxis, Protonix. 8. Clostridium difficile prophylaxis, Lactinex. The patient is critically ill at this time. Total time spent providing critical care to this patient today exceeds 36 minutes. <ELECTRONICALLY SIGNED> By: Esteban Trent MD 10/09/21 [id number] Trent MD /nt
[2021-10-09 20:00] VITALS: BP 111/50
[2021-10-10 00:37] VITALS: BP 136/68
[2021-10-10 04:39] VITALS: BP 132/77
[2021-10-10 04:41] LABS: ABSOLUTE LYMPHOCYTES 0.4 thou/uL (0.8-5.3); ABSOLUTE MONOCYTES 0.3 thou/uL (0.0-1.2); ABSOLUTE NEUTROPHILS 6.9 thou/uL (1.6-8.1); BASOPHILS 0.2 %; HEMATOCRIT 39.6 % (42.0-52.0); HEMOGLOBIN 12.7 gm/dL (14.0-18.0); LYMPHOCYTES 4.8 %; MCH 26.4 pg (26.0-34.0); MCV 82.5 fL (80.0-100.0); MONOCYTES 3.7 %; MPV 8.3 fl. (7.2-11.1); NUCLEATED RBCS 0 /100WBC; PLATELET COUNT* 242 thou/uL (150-400); POLYS 91.3 %; RDW-CV 14.1 % (10.5-14.5); WBC 7.6 thou/uL (4.0-11.0)
[2021-10-10 05:48] LABS: ALBUMIN 2.4 g/dL (3.4-5.0); CALCIUM 8.1 mg/dL (8.5-10.1); CREATININE 0.9 mg/dL (0.6-1.3); POTASSIUM 4.5 mmol/L (3.5-5.1); TOTAL BILIRUBIN 0.4 mg/dL (<0.1-1.0); TOTAL PROTEIN 6.4 g/dL (6.4-8.2)
[2021-10-10 07:25] VITALS: BP 125/58
[2021-10-10 12:00] VITALS: BP 111/43
[2021-10-10 16:00] VITALS: BP 128/58
[2021-10-10 20:00] VITALS: BP 136/60
[2021-10-11 00:40] VITALS: BP 141/60
[2021-10-11 04:00] VITALS: BP 152/76
[2021-10-11 04:52] LABS: ABSOLUTE LYMPHOCYTES 0.4 thou/uL (0.8-5.3); ABSOLUTE MONOCYTES 0.2 thou/uL (0.0-1.2); ABSOLUTE NEUTROPHILS 6.3 thou/uL (1.6-8.1); BASOPHILS 0.1 %; HEMATOCRIT 37.5 % (42.0-52.0); HEMOGLOBIN 12.5 gm/dL (14.0-18.0); LYMPHOCYTES 5.5 %; MCH 26.7 pg (26.0-34.0); MCHC 33.2 g/dL (28.0-37.0); MCV 80.5 fL (80.0-100.0); MONOCYTES 3.4 %; MPV 8.6 fl. (7.2-11.1); NUCLEATED RBCS 0 /100WBC; PLATELET COUNT* 223 thou/uL (150-400); RBC 4.66 mil/uL (4.50-6.00); RDW-CV 14.5 % (10.5-14.5); WBC 6.9 thou/uL (4.0-11.0)
[2021-10-11 05:18] LABS: ALBUMIN 2.3 g/dL (3.4-5.0); CALCIUM 7.5 mg/dL (8.5-10.1); CREATININE 0.8 mg/dL (0.6-1.3); MAGNESIUM 2.4 mg/dL (1.8-2.4); POTASSIUM 4.5 mmol/L (3.5-5.1); TOTAL BILIRUBIN 0.5 mg/dL (<0.1-1.0); TOTAL PROTEIN 6.1 g/dL (6.4-8.2)
[2021-10-11 07:45] VITALS: BP 128/66
[2021-10-11 12:00] VITALS: BP 136/72
[2021-10-11 20:00] VITALS: BP 123/54
[2021-10-11 20:59] VITALS: BP 98/44
[2021-10-12 00:56] VITALS: BP 147/80
[2021-10-12 04:09] VITALS: BP 142/71
[2021-10-12 04:35] LABS: ABSOLUTE LYMPHOCYTES 0.4 thou/uL (0.8-5.3); ABSOLUTE MONOCYTES 0.3 thou/uL (0.0-1.2); ABSOLUTE NEUTROPHILS 6.9 thou/uL (1.6-8.1); BASOPHILS 0.2 %; HEMATOCRIT 37.7 % (42.0-52.0); HEMOGLOBIN 12.6 gm/dL (14.0-18.0); MCH 26.9 pg (26.0-34.0); MCHC 33.3 g/dL (28.0-37.0); MCV 80.7 fL (80.0-100.0); MONOCYTES 3.8 %; NUCLEATED RBCS 0 /100WBC; PLATELET COUNT* 251 thou/uL (150-400); RBC 4.67 mil/uL (4.50-6.00); RDW-CV 14.4 % (10.5-14.5); WBC 7.6 thou/uL (4.0-11.0)
[2021-10-12 05:44] LABS: ALBUMIN 2.3 g/dL (3.4-5.0); CALCIUM 7.5 mg/dL (8.5-10.1); CREATININE 0.8 mg/dL (0.6-1.3); POTASSIUM 4.2 mmol/L (3.5-5.1); TOTAL BILIRUBIN 0.4 mg/dL (<0.1-1.0); TOTAL PROTEIN 5.9 g/dL (6.4-8.2)
[2021-10-12 08:00] VITALS: BP 114/69
[2021-10-12 11:29] VITALS: BP 113/56
[2021-10-12 20:13] VITALS: BP 138/75
[2021-10-12 23:47] VITALS: BP 108/75
[2021-10-13 04:08] VITALS: BP 134/71
[2021-10-13 05:45] LABS: HEMATOCRIT 38.5 % (42.0-52.0); HEMOGLOBIN 12.9 gm/dL (14.0-18.0); MCH 27.6 pg (26.0-34.0); MCHC 33.6 g/dL (28.0-37.0); MCV 82.2 fL (80.0-100.0); MPV 8.6 fl. (7.2-11.1); NUCLEATED RBCS 0 /100WBC; PLATELET COUNT* 223 thou/uL (150-400); RBC 4.68 mil/uL (4.50-6.00); RDW-CV 14.5 % (10.5-14.5); WBC 6.3 thou/uL (4.0-11.0)
[2021-10-13 06:18] LABS: ALBUMIN 2.3 g/dL (3.4-5.0); CALCIUM 7.4 mg/dL (8.5-10.1); CREATININE 0.8 mg/dL (0.6-1.3); MAGNESIUM 2.5 mg/dL (1.8-2.4); POTASSIUM 4.4 mmol/L (3.5-5.1); TOTAL BILIRUBIN 0.5 mg/dL (<0.1-1.0); TOTAL PROTEIN 5.5 g/dL (6.4-8.2)
[2021-10-13 06:56] LABS: ABSOLUTE EOSINOPHILS 0.2 thou/uL (0.0-0.7); ABSOLUTE LYMPHOCYTES 0.1 thou/uL (0.8-5.3); ABSOLUTE MONOCYTES 0.7 thou/uL (0.0-1.2); ABSOLUTE NEUTROPHILS 5.4 thou/uL (1.6-8.1); PLATELET ESTIMATE ADEQUATE
[2021-10-13 08:00] VITALS: BP 129/73
[2021-10-13 12:00] VITALS: BP 1007/60
[2021-10-13 16:00] VITALS: BP 113/58
[2021-10-13 17:18] VITALS: BP 113/58
[2021-10-13 20:30] VITALS: BP 130/70
[2021-10-14] VITALS: BP 133/52
[2021-10-14 04:00] VITALS: BP 140/55
[2021-10-14 06:05] LABS: CALCIUM 7.2 mg/dL (8.5-10.1); CREATININE 0.7 mg/dL (0.6-1.3)
[2021-10-14] MEDS ORDERED: DEXAMETHASONE1 MG PO (06:46)
[2021-10-14] MEDS ORDERED: PROTONIX40 M4 PO (06:46)
[2021-10-14 08:00] VITALS: BP 112/62
[2021-10-14 10:11] VITALS: BP 113/58
[2021-10-14] MEDS ORDERED: NYSTATIN15 G1 TOP (10:26)
== END 2021-10-14 10:30 | disposition home or self-care (01) | DRG 177 ==
LOC: M.ERS 12:34 → M.TBA-ER 15:18 → M.ORTHSURG 15:18 → M.TBA-ER 10-07 19:58 → M.ORTHSURG 10-07 21:11
PROVIDERS: Emergency Medicine; Emergency Medicine Emergency Medical Services; Internal Medicine; Internal Medicine Critical Care Medicine; ADMIT Internal Medicine; ATTEND Internal Medicine
PROC: 5A09457 Assistance with Respiratory Ventilation, 24-96 Consecutive Hours, Continuous Positive Airway Pressure (ICD-10-PCS; 2021-10-06)
PROC: 5A0935A Assistance with Respiratory Ventilation, Less than 24 Consecutive Hours, High Flow/Velocity Cannula (ICD-10-PCS; 2021-10-08)
PROC: 5A09357 Assistance with Respiratory Ventilation, Less than 24 Consecutive Hours, Continuous Positive Airway Pressure (ICD-10-PCS; 2021-10-09)
PROC: XW033E5 Introduction of Remdesivir Anti-infective into Peripheral Vein, Percutaneous Approach, New Technology Group 5 (ICD-10-PCS; principal; 2021-10-10)
PROC: 5A0935A Assistance with Respiratory Ventilation, Less than 24 Consecutive Hours, High Flow/Velocity Cannula (ICD-10-PCS; 2021-10-10)
PROC: 5A09357 Assistance with Respiratory Ventilation, Less than 24 Consecutive Hours, Continuous Positive Airway Pressure (ICD-10-PCS; 2021-10-10)
PROC: 05HF33Z Insertion of Infusion Device into Left Cephalic Vein, Percutaneous Approach (ICD-10-PCS; 2021-10-10)
PROC: XW033H5 Introduction of Tocilizumab into Peripheral Vein, Percutaneous Approach, New Technology Group 5 (ICD-10-PCS; 2021-10-10)
PROC: 5A0935A Assistance with Respiratory Ventilation, Less than 24 Consecutive Hours, High Flow/Velocity Cannula (ICD-10-PCS; 2021-10-11)
PROC: 5A0935A Assistance with Respiratory Ventilation, Less than 24 Consecutive Hours, High Flow/Velocity Cannula (ICD-10-PCS; 2021-10-11)
PROC: 5A09357 Assistance with Respiratory Ventilation, Less than 24 Consecutive Hours, Continuous Positive Airway Pressure (ICD-10-PCS; 2021-10-11)
PROC: 5A0935A Assistance with Respiratory Ventilation, Less than 24 Consecutive Hours, High Flow/Velocity Cannula (ICD-10-PCS; 2021-10-12)
PROC: 5A09357 Assistance with Respiratory Ventilation, Less than 24 Consecutive Hours, Continuous Positive Airway Pressure (ICD-10-PCS; 2021-10-12)
PROC: 5A0935A Assistance with Respiratory Ventilation, Less than 24 Consecutive Hours, High Flow/Velocity Cannula (ICD-10-PCS; 2021-10-13)
PROC: 5A09357 Assistance with Respiratory Ventilation, Less than 24 Consecutive Hours, Continuous Positive Airway Pressure (ICD-10-PCS; 2021-10-14)
DX: U07.1 COVID-19 (principal); J15.6 Pneumonia due to other Gram-negative bacteria; J12.82 Pneumonia due to coronavirus disease 2019; J80 Acute respiratory distress syndrome; E44.1 Mild protein-calorie malnutrition; I10 Essential (primary) hypertension; E66.01 Morbid (severe) obesity due to excess calories; Z68.39 Body mass index [BMI] 39.0-39.9, adult; Z88.8 Allergy status to other drugs, medicaments and biological substances; E87.70 Fluid overload, unspecified; E11.65 Type 2 diabetes mellitus with hyperglycemia

== ENCOUNTER → 2021-10-19 | Outpatient (CLI) | payer OTHER ==
[~2021-10-19] MED LIST changes: +DEXAMETHASONE1 MG PO; +NYSTATIN15 G1 TOP; +PROTONIX40 M4 PO
== END ==
LOC: M.RAD 12:49
PROVIDERS: ATTEND Internal Medicine Critical Care Medicine
DX: J84.9 Interstitial pulmonary disease, unspecified (principal); U07.1 COVID-19